=== PATIENT | female | born 1980 | race Caucasian/White ===

== ENCOUNTER 2023-09-16 09:09 | Day surgery (SDC) | payer OTHER ==
--- NOTE | 2023-09-16 08:21 | HP ---
DATE OF SURGERY: 09/16/2023 HISTORY OF PRESENT ILLNESS: The patient is a 43-year-old white female with a ball-like feeling when she eats in epigastrium and nausea. Ultrasound showed some enlarging polyp. The patient is concerned and desires cholecystectomy. PAST MEDICAL HISTORY: As mentioned above. PAST SURGICAL HISTORY: EGD. She had prior ablation, LEEP and cardiac catheterization in the past. MEDICATIONS: None on a regular basis. ALLERGIES: NKDA. FAMILY HISTORY: Cancer. SOCIAL HISTORY: No smoking, occasional alcohol use. REVIEW OF SYSTEMS: Twelve systems reviewed pertinent for as noted above. Ball-like feeling when she eats in the epigastrium. Enlarging gallbladder polyp on ultrasound. Otherwise pertinent for as noted above. PHYSICAL EXAMINATION: Height 5 feet 4 inches. BMI 23.69. GENERAL: No acute distress. HEENT: Sclerae nonicteric. EOMI. Oral mucous membranes moist. NECK: No JVD. CHEST: Equal excursion, nonlabored breathing. CVS: Regular rate and rhythm. ABDOMEN: Soft. No peritoneal signs. EXTREMITIES: No significant edema. NEURO: Alert, oriented, moving extremities symmetrically. PSYCH: Appropriate mood and affect. SKIN: Dry. IMPRESSION: Enlarging gallbladder polyp, question whether she had some chronic cholecystitis. Discussed options. With questionable polyps enlarging over time, the patient is concerned and monitor closely with serial ultrasound. The fact that she has some chronic cholecystitis I feel the patient would benefit from cholecystectomy and she desires this. She was shown the gallbladder pamphlet, explained the risks in detail including but not limited to bleeding or infection, risk of bowel injury or perforation, risk of missed, nondiagnosis or complete exam, risk of trocar injury or hernia, risk of bile leak, bile duct injury, retained stone or sludge possibly requiring further procedure either open or ERCP, risk of anesthesia, deep venous thrombosis, pulmonary embolism, pneumonia, risk of aches, pains, bloating, constipation and/or loose stools possibly even chronic in nature and possibly no improvement in preoperative symptoms possibly requiring further work up, studies, endoscopies, other studies or referrals. She understands and agrees to the planned procedure. Will schedule outpatient laparoscopic cholecystectomy possible open as an outpatient.
[2023-09-16 09:23] VITALS: RESP 18
[2023-09-16] MEDS ORDERED: Lactated Ringers 1,000 ML IV ONE (09:24)
[2023-09-16 09:26] LABS: HCG URINE TEST NEGATIVE (NEGATIVE)
[2023-09-16] MEDS: Lactated Ringers 1,000 ML IV SCH (09:28)
[2023-09-16] MEDS: MEFOXIN 2 GM PREMIX** 2 GM/50 ML ML IV SCH (09:29)
[2023-09-16] MEDS ORDERED: ROCURONIUM BROMIDE IV ONE (10:32)
[2023-09-16] MEDS ORDERED: Zofran 4 MG/2 ML VIAL ONE (10:32)
[2023-09-16] MEDS ORDERED: DIPRIVAN 200 MG/20 ML IV ONE (10:32)
[2023-09-16] MEDS ORDERED: Decadron 4 MG INJ ONE (10:32)
[2023-09-16] MEDS ORDERED: SUBLIMAZE 100 MCG/2 ML ONE ×2 (10:32→12:10)
[2023-09-16] MEDS ORDERED: Sensorcaine 0.25% 10 ML ONE (10:49)
[2023-09-16] MEDS ORDERED: Ephedrine Sulfate 50 MG/ML ONE (11:35)
[2023-09-16] MEDS ORDERED: TORAdol 30 mg Injection ONE (11:35)
[2023-09-16] MEDS ORDERED: BRIDION 200MG/2ML IV ONE (11:35)
[2023-09-16 13:04] VITALS: PULSE 60; TEMP 97.6
[2023-09-16 13:17] VITALS: BP 105/47; O2SAT 100
--- NOTE | 2023-09-17 10:01 | OP ---
SURGERY DATE/TIME: 09/16/2023 1059 PREOPERATIVE DIAGNOSIS: Some epigastric discomfort, some nausea, history of ultrasound showing question of enlarging polyp and some early mild chronic cholecystitis. POSTOPERATIVE DIAGNOSIS: Some epigastric discomfort, some nausea, history of ultrasound showing question of enlarging polyp and some early mild chronic cholecystitis. PROCEDURE: Laparoscopic cholecystectomy. SURGEON: Dr. Derik Dumont. ANESTHESIA: General. QUANTITATIVE BLOOD LOSS: Minimal. INDICATIONS: As noted above, consent obtained. DESCRIPTION OF PROCEDURE AND FINDINGS: The patient taken to the operating room. General anesthesia induced. Abdomen prepped and draped in usual sterile fashion. After official time out and no disagreement with planned procedure, transverse incision made in the supraumbilical area. Fascia grasped, pulled upward. Veress needle inserted and tested with saline. Pneumoperitoneum accomplished insufflating opening pressure of 0-15. An 11 mm supraumbilical port and camera inserted without difficulty. There was no evidence of any intra-abdominal injury secondary to trocar insertion. Two - 5 mm right upper quadrant ports placed, 5 mm epigastric port placed. There was no evidence of any injury secondary to trocar or port placement or Veress needle placement. The gallbladder quite distended, had some minimal to mild chronic inflammation. It was dissected posterior, lateral to anterior fashion slowly and carefully the cystic duct and infundibular junction carefully well skeletonized until the critical view obtained both anteriorly and posteriorly. Once this is accomplished, the cystic duct and cystic artery were clipped x3 and divided in the usual fashion. The gallbladder slowly and carefully dissected free from its dense attachments to the liver bed, clipping additional oozing side branches off the cystic artery and cystic vein directly on the gallbladder wall. Just prior to releasing from final attachments to the anterior edge of the liver, the liver bed re-inspected. Clips noted in place in the cystic duct and cystic artery stumps. No signs of any active bleeding or bile leakage. It was felt there is no benefit of drain placement. Gallbladder released from final attachments to anterior edge of the liver pulled up and out the supraumbilical port site and passed off. The fascial defect at the 1011 site closed with puncture closure device with #1 Vicryl. The gallbladder pulled free and passed off. At this point liver bed re-inspected. Clips noted to be in place cystic duct and cystic artery stumps. No signs of any active bleeding or bile leakage. It was felt there was no benefit in drain placement. Pneumoperitoneum decompressed. The wound irrigated out. Skin incision closed with 4-0 Vicryl. 0.25% Marcaine local injected along the skin incision fascial defect at the beginning of the procedure. There were no immediate complications. Steri-Strips and sterile dressing applied. Findings discussed with the family out in the waiting area.
== END 2023-09-16 13:22 | disposition home or self-care (01) ==
LOC: SDC 09:09
PROVIDERS: ATTEND Surgery
DX: K81.9 Cholecystitis, unspecified (principal); R10.13 Epigastric pain; R11.0 Nausea
CPT/HCPCS: 81025; J0694; J1100; J1885; J2405; J2704; J3010